=== PATIENT | male | born 1955 | race Caucasian/White ===

== ENCOUNTER 2025-02-16 11:26 | Emergency (ER) | payer MEDICARE ==
[~2025-02-16] VITALS: Ht 182.9 cm; Wt 108.9 kg
[2025-02-16 11:28] VITALS: BP 145/81; PULSE 87; RESP 17; TEMP 97.8
[2025-02-16] MEDS ORDERED: acetaMINOPHEN 500 MG TABLET PO ONE (11:30)
--- NOTE | 2025-02-16 11:39 | NUR ---
REFER TO TRAUMA FLOW SHEET.
--- NOTE | 2025-02-16 11:53 | HMCIMG ---
WRIST COMP 3+VWS RT HISTORY: Status post fall COMPARISON: None TECHNIQUE: 3 images of the right wrist were obtained. FINDINGS: There is no acute displaced fracture or dislocation. IMPRESSION: 1. Findings as described above.
--- NOTE | 2025-02-16 11:54 | HMCIMG ---
CT HEAD/BRAIN W/O CONTRAST HISTORY: Status post COMPARISON: None TECHNIQUE: Multiple sequential axial images of the head were obtained from the base of the skull through vertex. Patient was not given contrast through intravenous route. FINDINGS: The ventricles and extraventricular CSF spaces are dilated consistent with cerebral atrophy. Nonspecific white matter changes seen. There is no midline shift, mass effect or herniation. No acute intracranial bleed is seen. Visualized portion of the paranasal sinuses are grossly within normal limits. IMPRESSION: 1. No acute intracranial bleed is seen. 2. Atrophy with white matter changes. CT was performed with one or more following dose reduction techniques: automated exposure control, adjustment of the mA and kv according to patient's size, or use of a iterative reconstruction technique.
--- NOTE | 2025-02-16 11:59 | ERN ---
General Chief Complaint: Head, Face, Neck Trauma Stated Complaint: FALL WITH HEAD INJURY Time Seen by MD: 11:28 Source: patient History of Present Illness Initial Comments This is a 70-year-old male coming in to be evaluated after he had a fall. Per p atient he was sitting on his slipped landing in the left-sided his head. He has been not lose consciousness long with the as he states he has a right wrist pain. Past Medical History Past Medical History: A-Fib, Diabetes-Type II, High Cholesterol, Hypertension Medical History Other: OBESITY Past Surgical History: Tonsillectomy, Other Surgical History Other: INGUINAL HERNIA REPAIR ROS Dictation CONSTITUTIONAL: No chills, no fever, no weakness, no diaphoresis, no malaise. HEAD/FACE: signs of trauma. EENT: No eye pain, no blurred vision, no tearing, no double vision, no ear pain, no ear discharge, no nose pain, no nasal congestion, no throat pain, no throat swelling, no mouth pain. RESPIRATORY: No cough, no orthopnea, no SOB, no stridor, no wheezing. CARDIOVASCULAR: No chest pain, no edema, no palpitations, no syncope. GASTROINTESTINAL/ABDOMINAL: No abdominal pain, no constipation, no diarrhea, no nausea, no vomiting. GENITOURINARY: No abnormal discharge, no dysuria, no frequent urination, no hematuria. No complaints of pain in the genitals. MUSCULOSKELETAL: No back pain, no gout, no joint pain, no joint swelling, no muscle pain, no muscle stiffness, no neck pain. INTEGUMENTARY: No change in color, no change in hair/nails, no dryness, no lesion, no lumps, no rash. NEUROLOGICAL/PSYCH: No anxiety, not depressed, no emotional problem, no headache, no numbness, no pre-existing deficit, no history of seizures, no tremors, no weakness. HEMATOLOGIC/LYMPHATIC: Not anemic, no history of blood clots, no apparent bleeding, no bruising, glands not swollen. All Systems Negative, Except as Noted. Physical Exam Physical Exam Dictation VITAL SIGNS: Reviewed. GENERAL APPEARANCE: Alert, oriented x3, no acute distress, obese. HEAD AND FACE: traumatic., left frontal abrasion EYES: PERRL, pink conjunctivas, eyelid no trauma, anterior chamber clear. EARS: Pinnas intact and no signs of trauma or erythema. Ear canals clear and no discharge. TMs no erythema. NOSE: No discharge, no bleeding. OROPHARYNX: Mouth normal, teeth no caries, tongue pink. Pharynx clear, no erythema. Tonsils no exudates, no abscesses noted. Mucous membrane moist. NECK: Supple, non-tender, no thyromegaly, no masses, no JVD, no bruits. BREAST: Deferred. CHEST: No tenderness, no crepitus, no paradoxical movement, no retractions. LUNGS: Clear, well-ventilated, symmetric, no rales, no wheezing, no rhonchi, no stridor, good breath sounds bilaterally. HEART: Regular rate, regular rhythm, no murmur, no gallops. VASCULAR: No peripheral edema. ABDOMEN: Soft, positive bowel sounds, nondistended, no guarding, nontender, no rebound, no masses no hepatomegaly, no splenomegaly, no Owens's sign, no hernias. RECTAL: Deferred. GENITAL: Deferred. NEUROLOGICAL: Normal speech, gross motor function intact, gross sensory function intact. MUSCULOSKELETAL: Neck nontender, full range of motion, back nontender, full range of motion. EXTREMITIES: Nontender, full range of motion. SKIN: Color pink, dry, no turgor, no rash, no lacerations, no abrasions, no contusions. LYMPHATICS: Deferred. Results Laboratory and Microbiology Labs Reviewed?: Yes EKG/XRAY/US/CT/MRI X-RAY Comment Right wrist- NAD CT Scan Comment [place] [id number] [id number] IMAGING REPORT Signed PATIENT: JASSON GRULLON MR#: [id number] : 1955 SEX: M AGE: 70 LOCATION: [facility] ORDER 28 STATUS: REG REPORT#: [id number] SERVICE 27 REASON: fall ORDERING PHYSICIAN: FREDY OTOOLE MD PROCEDURE: HEAD WO - CT HEAD/BRAIN W/O CONTRAST CT HEAD/BRAIN W/O CONTRAST HISTORY: Status post COMPARISON: None TECHNIQUE: Multiple sequential axial images of the head were obtained from the base of the skull through vertex. Patient was not given contrast through intravenous route. FINDINGS: The ventricles and extraventricular CSF spaces are dilated consistent with cerebral atrophy. Nonspecific white matter changes seen. There is no midline shift, mass effect or herniation. No acute intracranial bleed is seen. Visualized portion of the paranasal sinuses are grossly within normal limits. IMPRESSION: 1. No acute intracranial bleed is seen. 2. Atrophy with white matter changes. CT was performed with one or more following dose reduction techniques: automated exposure control, adjustment of the mA and kv according to patient's size, or use of a iterative reconstruction technique. DICTATED BY: JACQUE CONCEPCION MD DATE: 02/16/25 115 ELECTRONICALLY SIGNED BY: JACQUE CONCEPCION MD DATE: 02/16/25 1154 MDM MDM: Differential diagnosis: Fall, wrist strain, Rationale: Tests considered and ordered secondary to shared decision making include: Previous outside records reviewed: Old ER visits. Risk of complication and/or morbidity or mortality of patient management: None Patient is a 70-year-old male coming in to be evaluated after he had a fall. Patient did not lose consciousness. Patient hit himself in the side of the head and because patient was not on [employer] CT head to be performed x-ray of the right wrist did not disclose findings either. Patient will be discharged in stable condition receiving in the Tdap due to the abrasions he presented with. ED Course Orders Procedure Category Date Status Time Ct Head/Brain W/O CT 02/16/25 Resulted Contrast 11:28 Wrist Comp 3+Vws Rt RAD 02/16/25 Resulted 11:28 Acetaminophen 500mg PHA 02/16/25 Logged Tab (Tylenol 500mg T 11:30 Current Medications Medications (Trade) Dose Ordered Sig/Jo-Ann Route PRN Reason Start Time Stop Time Status Last Admin Dose Admin Acetaminophen (TYLenol 500MG TAB) 1,000 mg ONCE ONCE PO 02/16/25 11:30 02/16/25 11:31 UNV Vital Signs Date Time Temp Pulse Resp B/P (MAP) Pulse Ox O2 Delivery O2 Flow Rate FiO2 02/16/25 11:28 97.9 87 17 145/81 96 Room Air 0 DX & DISP Disposition: Discharge Departure Impression: Primary Impression: Fall Additional Impressions: Skin abrasion, Strain of right wrist Condition: Stable Scripts Acetaminophen (Tylenol) 500 Mg Tab 1 TAB PO Q6HPRN PRN for pain or fever for 5 Days, #30 TAB 0 Refills Prov: FREDY OTOOLE MD 02/16/25 Additional Instructions: FOLLOW-UP WITH PRIMARY CARE PROVIDER IN 1 TO 2 DAYS. TAKE MEDICATIONS DIRECTED HERE IN THE EMERGENCY ROOM. OKAY TO CONTINUE HOME MEDICATIONS UNLESS OTHERWISE DISCUSSED DURING YOUR VISIT IN THE EMERGENCY ROOM TODAY. RETURN TO YOUR NEAREST EMERGENCY ROOM IF SYMPTOMS WORSEN OR IF THERE IS NO IMPROVEMENT. CALL 911 IF YOU NEED IMMEDIATE ASSISTANCE. TAKE TYLENOL [id number] NEEDED AND IF NO CONTRAINDICATIONS ARE PRESENT. INCREASE ORAL HYDRATION. A WOUND CULTURE OR URINE CULTURE WAS ORDERED HERE IN THE EMERGENCY ROOM DEPARTMENT PLEASE FOLLOW-UP WITH PRIMARY CARE PROVIDER AND ADVISE THEM TO GET REPORTS FROM OUR FACILITY. IF YOU HAD ANY DAINA WRAP/SPLINTS THAT WERE APPLIED HERE, PLEASE DO NOT REMOVE THEM UNTIL YOU SEE YOUR PRIMARY CARE OR SPECIALTY. Referrals: Referrals: SELF,REFERRAL (PCP) AMAN SANDOVAL MD Time of Disposition: 12:05 FREDY OTOOLE MD Feb 16, 2025 11:59
[2025-02-16] MEDS ORDERED: ACET-66 PO (12:07)
[2025-02-16] MEDS ORDERED: teTANUS/diphthERIA TOXOID [ADULT] 0.5 ML VIAL IM ONE (12:30)
== END 2025-02-16 12:30 | disposition home or self-care (01) ==
LOC: EDH 11:26
DX: S66.911A Strain of unspecified muscle, fascia and tendon at wrist and hand level, right hand, initial encounter (principal); S00.81XA Abrasion of other part of head, initial encounter; E11.9 Type 2 diabetes mellitus without complications; E66.9 Obesity, unspecified; E78.00 Pure hypercholesterolemia, unspecified; I10 Essential (primary) hypertension; I48.91 Unspecified atrial fibrillation; Z90.89 Acquired absence of other organs; W01.0XXA Fall on same level from slipping, tripping and stumbling without subsequent striking against object, initial encounter; Y93.89 Activity, other specified; Y92.89 Other specified places as the place of occurrence of the external cause; Y99.8 Other external cause status
CPT/HCPCS: 70450; 73110; 99284; 99285; 99291